=== PATIENT | female | born 1995 | race Caucasian/White ===

== ENCOUNTER → 2025-03-01 | Outpatient (CLI) | payer MEDICAID, SELFPAY ==
--- NOTE | 2025-03-01 16:15 | XR_ITS ---
Examination: Transvaginal ultrasound of the pelvis, complete Technique: Transvaginal sonographic images pelvis performed using casas scale imaging Exam date and time: March 01, 2025 1629 hrs. Indications: Small solid left ovarian lesion 16 x 10 x 10 mm on MRI pelvis 08/06/2024. 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
== END | disposition home or self-care (01) ==
LOC: CDIM 16:17
PROVIDERS: PCP Internal Medicine; Referring Provider Internal Medicine; Visit Provider Internal Medicine
DX: N83.8 Other noninflammatory disorders of ovary, fallopian tube and broad ligament (principal)
CPT/HCPCS: 76830